=== PATIENT | female | born 1945 | race Caucasian/White ===

== ENCOUNTER → 2017-10-24 14:57 | Outpatient (CLI) | payer MEDICARE, OTHER, SELFPAY ==
--- NOTE | 2017-10-24 15:04 | XR_ITS ---
XR DEXA axial skeleton HISTORY: ITS.REASON: OSTEOPAROSIS ORDERING PHYSICIAN: Tyrese Alcazar MD PATIENT AGE: 72 years COMPARISON: 06/06/2012 FINDINGS: The BMD measured at the Right femoral neck is 0.940 g/cm squared with a T score of -0.7 . This is considered normal according to the World Health Organization criteria. Fracture risk is low. Treatment is advised. Lumbar spine density has increased by 1.6% in the hip density has decreased by 4% compared to the previous exam. L1 L4 density has a T score of 1.4 which is within normal limits IMPRESSION: Normal bone density. Suggest follow-up exam October 2019
--- NOTE | 2017-10-24 15:04 | CT_ITS ---
EXAM: CT LUNG LOW DOSE WO CONTRAST COMPARISON: None HISTORY: 72-year-old female with greater than 30 pack-year smoking history, asymptomatic ORDERING PHYSICIAN: Tyrese Alcazar MD PATIENT AGE: 72 years TECHNIQUE: The exam was performed on a GE Light Speed [address] scanner using 18.1 mGy CTDI. A low dose helical CT CHEST was performed on a multi-detector scanner The LDCT was performed in a facility that meets the criteria for the screening program. Data regarding this exam was submitted to ACR which is an approved registry. The order for this exam indicates that it came as a result of a lung cancer screening counseling shard decision-making visit that included all the elements required of such a visit including smoking cessation. The radiologist interpreting this exam meets the [facility] criteria for the LDCT lung cancer screening program. The exam is reported using the Lung-RADS classification scale and reported to the ACR registry. NOTE: This study was performed for the specific purposes of lung cancer screening and is not an alternative to diagnostic chest CT. RADIATION DOSE: CTDI vol(CT dose Index-volume) = 18.1mG DLP (Dose Length Product) = 664.76 mGcm FINDINGS: Centrilobular emphysematous changes are present. There is hyperinflation with bronchial thickening consistent with obstructive chronic bronchitis. There is evidence of old granulomatous disease with scattered calcified granulomas. There are multiple noncalcified pulmonary nodules as well including a 5 mm nodule in the right upper lobe centrally, 7 x 6 mm nodule along the right major fissure inferiorly. This nodule is somewhat more irregular than expected for a lymph node therefore, follow-up is recommended., 5 mm nodule right upper lobe inferiorly, 5 mm nodule left lung base laterally. Bronchial thickening noted in the left lung base with patchy atelectasis or infiltrate in the left lower lobe and lingula. There are coronary artery calcifications. An 8 x 5 cm isodense lesion is present in the left upper quadrant posterior to the left kidney measuring near water density consistent with renal cyst There is chronic wedging of T6. IMPRESSION: 1. Lung RADS Category: 3, probably benign 2. Other findings: Emphysema, obstructive chronic bronchitis. Bronchiolitis with atelectasis or infiltrate in the left lower lobe and lingula, coronary artery disease RECOMMENDATIONS: [address] follow-up without and with contrast
== END ==
PROVIDERS: Family Provider Family Medicine; PCP Family Medicine; Visit Provider Family Medicine
DX: Z87.891 Personal history of nicotine dependence (principal); Z12.2 Encounter for screening for malignant neoplasm of respiratory organs; M81.0 Age-related osteoporosis without current pathological fracture
CPT/HCPCS: 77080

== ENCOUNTER → 2017-10-26 08:49 | Outpatient (CLI) | payer MEDICARE, OTHER, SELFPAY ==
--- NOTE | 2017-10-26 09:00 | MM_ITS ---
MM Dig screening mamm BI w/CAD CAD Screening ORDERING PHYSICIAN : Tyrese Alcazar MD PATIENT AGE: 72 years GENDER: Female COMPARISON: Previous mammograms: June 2012, November 2008 and 2007 INDICATION: Routine screening. No hormones. No complaints Family history. Maternal aunt with breast cancer postmenopausal TECHNIQUE: Standard CC and MLO images were obtained. R2 CAD reviewed. FINDINGS: Stable bilateral mammogram with no significant new findings. Lower density breast but there is Mild to moderate residual scattered fibroglandular breast tissue in density most evident towards superior breast. Stable minor asymmetry. RIGHT BREAST: Stable small intramammary lymph node deep right breast on MLO view unchanged since 2008 On detailed review I would note barely evident subtle grouping of small more likely benign-appearing mainly punctate calcifications seen at deep lateral right breast on cc view. On magnification & closer inspection there appear to be tiny calcifications here... On MLO these likely at central breast.. Would suggest CC and 90 degree magnification views at the patient's convenience to further evaluate these most likely benign early calcifications highlighted by CAD..-At patient's convenience. (A Reasonable alternative would be a 6 month follow-up right mammogram in preferred by patient). I Reviewed this study twice previously and again today with and similar recommendations stand recommendation Minimal nodularity this medial to this region was highlighted by CAD but I believe seems to dissipate on MLO view and not of significant concern OB included on the CC spot views as well LEFT BREAST:No new areas of concern on the left.. Follow-up in one year adequate ===== IMPRESSION: ====== 1. Right breast A very small cluster of most likely benign punctate calcifications lateral central right breast . These are subtle but given the numerous tiny associated calcifications here, I believe benefit magnification spot views. ( Reasonable alternative if preferred would be 6-8 month follow-up right breast) . 2. Left breast. Follow-up in one year adequate on left BI-RADS Category: 0 Need Additional Imaging Evaluaiton. RECOMMENDED FOLLOW-UP: IMM - IMMEDIATE FOLLOW-UP RECOMMENDED (A letter has been sent to the patient regarding results of the study.) A
== END ==
PROVIDERS: Family Provider Family Medicine; PCP Family Medicine; Visit Provider Family Medicine
DX: Z12.31 Encounter for screening mammogram for malignant neoplasm of breast (principal); N60.11 Diffuse cystic mastopathy of right breast; N60.12 Diffuse cystic mastopathy of left breast
CPT/HCPCS: 77067

== ENCOUNTER → 2017-10-30 14:44 | Outpatient (CLI) | payer MEDICARE, OTHER, SELFPAY | PROVIDERS: PCP Family Medicine; Visit Provider Surgery | DX: Z01.810 Encounter for preprocedural cardiovascular examination (principal) | CPT/HCPCS: 93005 ==

== ENCOUNTER → 2017-11-14 12:39 | Outpatient (CLI) | payer MEDICARE, OTHER, SELFPAY ==
--- NOTE | 2017-11-14 12:48 | MM_ITS ---
MM Dig mamm DX unilat RT CAD COMPARISON: 10/26/2017 INDICATION: Follow-up abnormal mammogram ORDERING PHYSICIAN: Tyrese Alcazar MD PATIENT AGE: 72 years TECHNIQUE: Magnification views obtained as well as a right ML view FINDINGS: Previously described small cluster of calcifications are once again noted. The calcifications have a somewhat smudgy appearance however they do not linoleum tile layer as milk of calcium and have some pleomorphism and are similar in appearance on all 3 magnification views. There are mildly suspicious and biopsy is recommended. IMPRESSION: Mildly suspicious cluster of calcifications in the upper outer right breast having some pleomorphism. BI-RADS Category: 4 Suspicious Abnormality-Biopsy Considered RECOMMENDED FOLLOW-UP: BIO - BIOPSY RECOMMENDED Recommend stereotactic breast biopsy (A letter has been sent to the patient regarding results of the study.)
== END ==
PROVIDERS: Family Provider Family Medicine; PCP Family Medicine; Visit Provider Family Medicine
DX: R92.8 Other abnormal and inconclusive findings on diagnostic imaging of breast (principal)
CPT/HCPCS: 77065

== ENCOUNTER → 2017-12-05 09:00 | Outpatient (CLI) | payer MEDICARE, OTHER, SELFPAY ==
--- NOTE | 2017-12-05 | MM_ITS ---
MM stereotactic loc RT, MM Dig mamm DX unilat RT CAD ORDERING PHYSICIAN: Tyrese Alcazar MD PATIENT AGE: 72 years HISTORY: Breast calcifications 9:00 right breast PROCEDURE: The patient was given 0.5 mg of Xanax, Lortab 5 mg, and analgesia and minor sedation. The patient was placed on the stereotactic table and the abnormality was localized in the most appropriate projection. The breast was prepped in the routine manner, with sterile prep and the overlying skin anesthetized. A 3 to 4 mm skin incision was performed and the 9 gauge sorus vacuum-assisted core biopsy needle was advanced to the region of the calcification. Pre- and post fire images were obtained. After adequate positioning relative to the calcifications was ensured, multiple biopsies were obtained in the region of the calcifications specifically. The core biopsies obtained were sent for specimen mammography. After the calcifications were indeed identified on the specimen mammogram, the procedure was terminated. The patient tolerated the procedure well without complications. Specimen was sent for pathologic analysis which should be forthcoming within 3 working days. Routine follow-up phone call to patient is to be performed as well. A tiny titanium nonferromagnetic MicroMark was positioned through the mammotome needle into the biopsy site. Pathology: Benign breast parenchyma with fibrocystic change with rare microcalcifications. Negative for atypia or malignancy IMPRESSION: 1. Successful stereotactic vacuum-assisted core biopsy of the Right breast calcifications. 2. Successful placement of a titanium metal MicroMark. 3. No immediate competitions. SPECIMEN RADIOGRAPH: The mammographically evident calcifications from the prior study are currently evident within the Ragini dish and within the specimens obtained during mammotome procedure. This is considered an adequate specimen and the procedure was terminated. IMPRESSION: Successful removal of described breast calcifications. Right BREAST MAMMOGRAM: Compared to the prior study, the previously noted calcification have been removed. A small MicroMark clip was inserted into the region of the calcifications. There is evidence of soft tissue changes in the region of the biopsy was soft tissue gas and edema. IMPRESSION: 1. Adequate placement of the MicroMark clip postbiopsy. 2. Postbiopsy changes within the rightbreast.
== END ==
PROVIDERS: Family Provider Family Medicine; PCP Family Medicine; Visit Provider Family Medicine
DX: R92.8 Other abnormal and inconclusive findings on diagnostic imaging of breast (principal)
CPT/HCPCS: 19081; 77065; 88305

== ENCOUNTER → 2018-04-23 11:35 | Outpatient (CLI) | payer MEDICARE, OTHER, SELFPAY ==
[2018-04-23 14:57] LABS: Blood Urea Nitrogen 20 mg/dL (7-18); Creatinine,Serum 0.76 mg/dL (0.55-1.02); Estimated Glomerular Filt Rate 75 ml/min (>60); GFR (African American) 90 ML/MIN (>60)
== END ==
PROVIDERS: PCP Family Medicine; Visit Provider Family Medicine
DX: Z01.818 Encounter for other preprocedural examination (principal)
CPT/HCPCS: 36415; 82565; 84520

== ENCOUNTER → 2018-04-29 12:42 | Outpatient (CLI) | payer MEDICARE, OTHER, SELFPAY ==
--- NOTE | 2018-04-29 12:46 | CT_ITS ---
CT chest wo/w con HISTORY: Follow-up pulmonary nodules, cough ITS.REASON: LUNG NODULE ORDERING PHYSICIAN: Tyrese Alcazar MD PATIENT AGE: 73 years COMPARISON: 10/24/2017 Technique: Axial images obtained without and with contrast. 75 mL Isovue-370 utilized. With sagittal and coronal reformats. All CT scans at the facility use one or more dose reduction, viz: automated exposure control, ma/kV adjustment per patient size (including targeted exams where dose is matched to indication, i.e. head), or iterative reconstruction technique. FINDINGS: There are scattered small lymph nodes in the mediastinum not significantly changed. No evidence of aortic aneurysm or dissection. No central pulmonary embolus. No mediastinal or hilar mass or adenopathy. Normal heart size without evidence of pericardial effusion. There are coronary artery calcifications. There are centrilobular emphysematous changes. No change 4 mm nodular opacity right upper lobe centrally. No change in the 6 mm fissural nodule along the major fissure on the right in the perihilar region. There are scattered calcified granulomas. Atelectatic changes are present in the lung bases. A 5 mm noncalcified nodules present in the left lower lobe posteriorly and laterally unchanged. No new nodules evident. No central obstructing lesions. No enhancing lesions There is wedge compression changes of T6 unchanged. 8 x 6 cm left renal cyst noted unchanged. IMPRESSION: 1. Overall stable CT appearance of the chest. No change in the above-mentioned pulmonary nodules. Suggest continued 12 month follow-up 2. Centrilobular is edema. 3. Old granulomatous disease
== END ==
PROVIDERS: Family Provider Family Medicine; PCP Family Medicine; Visit Provider Family Medicine
DX: R91.1 Solitary pulmonary nodule (principal)
CPT/HCPCS: 71270; Q9967

== ENCOUNTER 2018-05-22 16:30 | Outpatient (RCR) | payer MEDICARE, OTHER, SELFPAY ==
--- NOTE | 2018-05-14 17:43 | HMH.PTOPEV ---
PT Outpatient Evaluation Rehab PT Outpatient Evaluation Start: 05/14/18 17:25 Freq: Status: Active Protocol: Document 05/14/18 17:25 TOYA (Rec: 05/14/18 17:43 TOYA [id number]) Electronically Signed By Lyle Sylvester, PT 05/14/18 17:25 Outpatient Therapy Subjective History Subjective History Pt reports pain began insidiously ~ 1 month ago. Pt reports pain begins in her lateral R ankle/foot, moves up into lateral calf, posterior thigh, then into buttocks. Pt reports pain only begins upon lying down. Chief Complaint Pain Symptom Type Ache Throb Symptoms Relieved By Rest/Positioning Symptoms Aggravated By Prone Supine Prior Functional Limitations None Current Functional Limitations Sleeping Symptom Description Intermittent Level of pain today (0-10) 0 Pain scale - at its best (0-10) 0 Pain scale - at its worst (0-10) 7 Lumbopelvic Eval Assistive device Assistive Devices None / NA Gait Observation General Gait Pattern Observation No Deviations/Normal Palapation tenderness right lumbar spinal tenderness Yes buttock tenderness Yes Lumbar/Sacral Palpation Overall Comment TTP at R piriformis Accessory Movement L4 right L5 right Range of Motion Lumbar Spine ROM Reason Not Measured Within Functional Limits DTR Rt Patellar 1+ Lt Patellar 1+ Rt Gastroc/Soleus 0 Lt Gastroc/Soleus 0 Altered Sensation Bilateral Comment no altered sensation Special Tests Lumbar Spine Screen Negative Sciatic Nerve Tension Test Negative Right Reverse Sciatic Nerve Tension Test Negative Right Hip 90-90 Straight Leg Raise Test Negative Right Unilateral Straight Leg Raise (Lasegue) Negative Right Test Lumbar Long [place] Distraction Test/Manual Positive Traction Outpatient Therapy Assessment Impairments Problems/Impairmments Palpation Tenderness Subjective C/O Pain Impaired Self Care/Self Management Prognosis Rehab Potential Fair Clinical Impression Consistent with Diagnosis Yes Short Term Goals Number of Weeks 2 Decreased Palpation Tenderness Yes: min Decrease Subjective C/O Pain Yes: 01/13 Patient to be Ind w/ HEP Yes [employer]
== END 2018-05-22 16:31 | disposition home or self-care (01) ==
LOC: PT 16:30
PROVIDERS: Family Provider Family Medicine; PCP Family Medicine; Visit Provider Family Medicine
DX: M54.31 Sciatica, right side (principal)
CPT/HCPCS: 97110; 97163

== ENCOUNTER → 2018-06-05 14:03 | Outpatient (CLI) | payer MEDICARE, OTHER, SELFPAY ==
--- NOTE | 2018-06-05 14:07 | CI_ITS ---
Cerebrovascular Exam Indications: 433.10 Occlusion/stenosis of carotid artery without cerebral infarction. IMPRESSIONS 1. The bilateral vertebral arteries are patent with normal antegrade flow. 2. Study suggests less than 20% stenosis involving the right internal carotid artery. No change from the study of 29-Dec-2011. 3. Study suggests less than 20% stenosis involving the left internal carotid artery. No change from the study of 29-Dec-2011. Carotid duplex study. Complete study and Doppler flow study including spectral analysis, color and mora scale imaging. Height: Height: 170.2cm. Height: 67in. Weight: Weight: 104.3kg. Weight: 229.5lb. Body mass index: BMI: 36kg/m^2. Body surface area: BSA: 2.26m^2. Location: Vascular laboratory. Patient status: Outpatient. Tables: Arterial flow: + +--------+--------+ Location V sys V ed + +--------+--------+ Right CCA - proximal 68.4cm/s 20.4cm/s + +--------+--------+ Right CCA - distal 67.6cm/s 21.2cm/s + +--------+--------+ Right ECA 119cm/s 9.4cm/s + +--------+--------+ Right ICA - proximal 77.8cm/s 22cm/s + +--------+--------+ Right ICA - mid 123cm/s 35.4cm/s + +--------+--------+ Right ICA - distal 131cm/s 45.6cm/s + +--------+--------+ Right vertebral 51.9cm/s 9.4cm/s + +--------+--------+ Left CCA - proximal 66.8cm/s 18.9cm/s + +--------+--------+ Left CCA - distal 58.1cm/s 14.1cm/s + +--------+--------+ Left ECA 92.7cm/s 11.8cm/s + +--------+--------+ Left ICA - proximal 68.4cm/s 19.6cm/s + +--------+--------+ Left ICA - mid 54.2cm/s 16.5cm/s + +--------+--------+ Left ICA - distal 62.1cm/s 22cm/s + +--------+--------+ Left vertebral 38.5cm/s 10.2cm/s + +--------+--------+ Velocity ratios: + + + + + + Right, V sys Right, V ed Left, V sys Left, V ed + + + + + + Max ICA/dist CCA 1.94 2.15 1.18 1.56 + + + + + + (Report amended ) Electronically signed by: Uriel Marin [id number]
== END ==
PROVIDERS: PCP Family Medicine; Visit Provider Family Medicine
DX: I65.23 Occlusion and stenosis of bilateral carotid arteries (principal)
CPT/HCPCS: 93880

== ENCOUNTER → 2019-10-03 13:06 | Outpatient (CLI) | payer MEDICARE, OTHER, SELFPAY ==
--- NOTE | 2019-10-03 13:10 | US_ITS ---
PROCEDURE: US THYROID CLINICAL INDICATION: GOITER COMPARISON: THY US THYROID from 03/26/[address] chest wo/w con from 04/29/2018 FINDINGS: Right lobe: 4.1 x 1.4 x 1.9 cm. There is heterogeneous echogenicity. A 4 mm hypoechoic nodules present centrally with an additional 4 mm hypoechoic nodule centrally. There is some questionable calcification noted in the medial aspect of the right lobe of the thyroid gland inferiorly Left lobe: 4.1 x 1.3 x 1.1 cm. There is some decreased echogenicity centrally. This area measures approximately 7 mm and could represent a small ill-defined nodule. The lower poles are difficult to delineate on both lobes due to the low position. Isthmus: Unremarkable Additional findings: IMPRESSION: Heterogeneous thyroid echogenicity with bilateral nodules low level of suspicion for malignancy. There is questionable calcification in the right lobe. Recommend six-month follow-up to confirm stability Dictated by: Uriel Marin MD 10/03/2019 16:50 Electronically signed by Uriel Marin MD in [place] 10/03/2019 16:50
== END ==
PROVIDERS: PCP Family Medicine; Visit Provider Family Medicine
DX: E04.9 Nontoxic goiter, unspecified (principal)
CPT/HCPCS: 76536

== ENCOUNTER → 2019-10-16 12:20 | Outpatient (CLI) | payer MEDICARE, OTHER, SELFPAY ==
[2019-10-16 13:41] LABS: Free T4 (Free Thyroxine) 0.97 ng/dl (0.78-2.19)
== END ==
PROVIDERS: Visit Provider Physician Assistant
DX: E03.9 Hypothyroidism, unspecified (principal)
CPT/HCPCS: 84439

== ENCOUNTER → 2020-05-03 09:21 | Outpatient (CLI) | payer MEDICARE, OTHER, SELFPAY ==
--- NOTE | 2020-05-03 09:25 | MM_ITS ---
PROCEDURE: MM DIG SCREENING MAMM BI W/CAD Referring Doctor: Tyrese Alcazar Patient Age:75Y CLINICAL INDICATION: SCREENING no hormones no new complaints Stereotactic right Fam Hx : Mat aunt COMPARISON: MG DIGMAMMS MAMMOGRAM SCREEN-COMPRESSOR MECHANIC N/C from 11/21/2007 MG DIGMAMMS MAMMOGRAM SCREEN-COMPRESSOR MECHANIC N/C from 11/24/2008 MG DMSB DIGITAL MAMM-SCREEN BILATERAL from 06/06/2012 MG SCBI MM Dig screening mamm BI w/CAD from 10/26/2017 MG DXRT MM Dig mamm DX unilat RT CAD from 11/14/2017 MG STRT MM stereotactic loc RT from 12/05/2017 TECHNIQUE: Standard CC and MLO images were obtained. R2 CAD reviewed. Bilateral digital breast tomosynthesis included. FINDINGS: Moderate density breast. Mild asymmetry. No new suspicious calcifications. Left breast:. Small 6 mm X 7 mm small ovoid density at 12 o'clock left breast has developed since prior studies. Suspect likely small cyst or similar feature. But would recommend ultrasound to further evaluate along with spot cc and 90 degree view and CC view. Right breast. No new areas of concern on the right . There has been a previous percutaneous biopsy at right breast performed December 2017. Metallic clip marker deep lateral right breast. Otherwise the overall pattern the breast appears unchanged compared to to 2016 on today's study. And the IMPRESSION: Left breast. New small round density towards 12 o'clock -suspect likely small cyst. Recommend ultrasound and spot views to further evaluate Right breast: No new areas of concern follow-up right mammogram 1 year BI-RAD Category: 0 Need Additional Imaging Evaluation a headache FOLLOW-UP: IMM Immediate Follow-up Recommended (A letter has been sent to the patient regarding results of the study.) Dictated by: Germán Calhoun MD 05/10/2020 11:41 Germán Calhoun MD in [place] 05/10/2020 11:41
--- NOTE | 2020-05-03 09:25 | XR_ITS ---
PROCEDURE: XR DEXA AXIAL SKELETON CLINICAL HISTORY: OSTEOPENIA COMPARISON: CR DEXAAX XR DEXA axial skeleton from 10/24/2017 FINDINGS: The right hip BMD is 0.774 with a T-score of -0.7. The left hip BMD is 0.813 with a T-score of -0.3. The lumbar spine BMD is 1.220 with a T-score of 1.6. Previously the lowest density was in the right femoral neck with a T-score of -0.7 IMPRESSION: This patient is considered normal according to the World Health Organization criteria. Fracture risk is low. Based on these results a follow-up exam is recommended in 2 year. Dictated by: Uriel Marin MD 05/04/2020 08:23 Uriel Marin MD in [place] 05/04/2020 08:23
== END ==
PROVIDERS: PCP Family Medicine; Visit Provider Family Medicine
DX: Z12.31 Encounter for screening mammogram for malignant neoplasm of breast (principal); M85.89 Other specified disorders of bone density and structure, multiple sites
CPT/HCPCS: 77063; 77067; 77080

== ENCOUNTER → 2020-05-26 14:32 | Outpatient (CLI) | payer MEDICARE, OTHER, SELFPAY ==
--- NOTE | 2020-05-26 14:34 | MM_ITS ---
PROCEDURE: MM DIG MAMM DX UNILAT LT CAD Digital Breast Tomosynthesis Included CLINICAL INDICATION: ABN MAMM COMPARISON: MG DXRT MM Dig mamm DX unilat RT CAD from 11/14/2017 MG STRT MM stereotactic loc RT from 12/05/2017 MG MM DIG SCREENING MAMM BI W/CAD from 05/03/2020 US US BREAST LT COMPLETE from 05/26/2020 TECHNIQUE: Standard CC and MLO images and 3D Tomosynthesis was obtained. R2 CAD reviewed. FINDINGS: Spot-compression views show that the previously described nodular density does not press out. It shows well-defined borders and in fact on some of the spot views it appears at there are 2 small nodular densities adjacent to 1 another and partially overlapping. Ultrasound performed same date showed a somewhat complex appearing cyst with partial internal septation versus 2 cystic structures with partial septation. It shows no suspicious characteristics on ultrasound or on the spot views. IMPRESSION: Probable complex cyst versus 2 small cysts with partial internal septation BI-RAD Category: 2 Benign Finding(s) FOLLOW-UP: 1YR 1 Year Follow-up (A letter has been sent to the patient regarding results of the study.) Dictated by: Dr. James Ribera MD 06/02/2020 08:06 Dr. James Ribera MD in [place] 06/02/2020 08:06
--- NOTE | 2020-05-26 14:34 | US_ITS ---
PROCEDURE: US BREAST LT COMPLETE CLINICAL INDICATION: ABN MAMM COMPARISON: No exams were available for comparison FINDINGS: There is a small hypoechoic cystic-appearing structure the 12 o'clock position near the nipple measuring 0.7 by 0.9 x 0.4 cm. This cystic structure is either a complex cyst with partial internal septation versus 2 small cyst abutting one another. There are no suspicious characteristics. The surrounding breast parenchyma is unremarkable. There are 2 normal appearing nodes seen in the axilla. IMPRESSION: Complex cyst versus versus 2 cysts abutting one another and I believe no further evaluation is indicated. Dictated by: Dr. James Ribera MD 06/02/2020 08:08 Dr. James Ribera MD in [place] 06/02/2020 08:08
== END ==
PROVIDERS: PCP Family Medicine; Visit Provider Nurse Practitioner
DX: R92.8 Other abnormal and inconclusive findings on diagnostic imaging of breast (principal)
CPT/HCPCS: 76641; 77061; 77065; G0279

== ENCOUNTER → 2021-09-30 12:00 | Outpatient (CLI) | payer MEDICARE, OTHER, SELFPAY ==
[2021-09-30 12:44] LABS: Basophils % 0.3 % (0.1-2.0); Eosinophils % 0.2 % (0.1-12.0); Hematocrit 38.9 % (37.0-47.0); Hemoglobin 12.9 g/dL (12.2-16.2); Lymphocytes # 1.4 K/mm3 (0.7-4.5); Mean Corpuscular HGB Conc 33.2 g/dL (31.8-35.4); Mean Corpuscular Hemoglobin 31.6 pg (27.0-31.2); Mean Corpuscular Volume 95.4 fl (81-99); Mean Platelet Volume 8.8 fl (7.4-10.4); Monocytes # 0.6 K/mm3 (0.1-1.0); Monocytes % 6.6 % (1.7-9.3); Neutrophils # 6.6 K/mm3 (1.8-7.8); Neutrophils % 76.9 % (37.0-80.0); Platelet Count 157 K/mm3 (142-424); Red Blood Count 4.08 M/mm3 (4.20-5.40); Red Cell Distribution Width 14.1 % (11.5-17.5); White Blood Count 8.5 K/mm3 (4.8-10.8)
--- NOTE | 2021-09-30 12:53 | XR_ITS ---
FINAL REPORT CLINICAL HISTORY: COVID TESTING cough, smoker COMPARISON: August 21, 2016 FINDINGS: The heart size is normal. The mediastinum is normal. There is chronic scarring or fibrosis in the lung bases that is more evident than on the prior exam. There are no pleural effusions. There is no pneumothorax. There is no osseous abnormality. IMPRESSION: Chronic scarring or fibrosis in the lung bases. Reviewed, Interpreted and Dictated by Ilia Lopez MD Transcribed by Cornel Wells Authenticated by Ilia Lopez MD on 09/30/2021 01:34:51 PM [facility]
== END ==
PROVIDERS: PCP Family Medicine; Visit Provider Family Medicine
DX: U07.1 COVID-19 (principal)
CPT/HCPCS: 36415; 71045; 85025; 87275; 87276; C9803; U0003; U0005

== ENCOUNTER → 2022-07-14 07:30 | Outpatient (CLI) | payer MEDICARE, OTHER, SELFPAY ==
--- NOTE | 2022-07-14 07:38 | MR_ITS ---
FINAL REPORT CLINICAL HISTORY: SYNOVIAL CYST OF LEFT POPLITEAL SPACE. PAIN IN BEND OF KNEE. MEDIAL SIDED KNEE PAIN. NO INJURY OR TRAUMA. KNEE INSTABILITY. FINDINGS: Multiplanar MR imaging of the right knee was performed without contrast. There is medial meniscal degeneration with a tear of the posterior root. The lateral meniscus is intact. The anterior and posterior cruciate ligaments are intact. The medial collateral ligament and lateral ligamentous complex are intact. The patellar and quadriceps tendons are intact. There are foci of patellar tendinitis. There is a nondisplaced fracture of the medial tibial plateau with adjacent bone marrow edema. There is mild degenerative change with moderate to severe medial compartment chondromalacia. There is also severe patellofemoral chondromalacia with multiple subchondral cysts. Moderate joint effusion is seen. The musculature is intact. No soft tissue mass or cyst is identified. IMPRESSION: Tear posterior root medial meniscus. Nondisplaced fracture of the medial tibial plateau. Degenerative change and chondromalacia. Reviewed, Interpreted and Dictated by Jose Machuca III, MD Transcribed by Misty Trinh Authenticated and [facility]
== END ==
PROVIDERS: PCP Family Medicine; Visit Provider Family Medicine
DX: M71.22 Synovial cyst of popliteal space [Baker], left knee (principal)
CPT/HCPCS: 73721

== ENCOUNTER → 2022-08-03 09:01 | Outpatient (CLI) | payer MEDICARE, OTHER, SELFPAY ==
--- NOTE | 2022-08-03 09:12 | XR_ITS ---
FINAL REPORT CLINICAL HISTORY: knee pain COMPARISON: July 14, 2022 MRI FINDINGS: 3 views of the left knee were obtained. There is no acute fracture or dislocation. There are mild degenerative changes. There is calcification in the lateral meniscus. There is a moderate joint effusion. IMPRESSION: Mild degenerative change with moderate joint effusion. Reviewed, Interpreted and Dictated by Jose Machuca III, MD Transcribed by Cornel Wells Authenticated and [facility]
== END ==
PROVIDERS: PCP Psychiatry & Neurology Sleep Medicine; Visit Provider Orthopaedic Surgery
DX: M25.562 Pain in left knee (principal)
CPT/HCPCS: 73562

== ENCOUNTER → 2022-11-17 12:31 | Outpatient (CLI) | payer MEDICARE, OTHER, SELFPAY ==
--- NOTE | 2022-11-17 12:38 | CT_ITS ---
FINAL REPORT TECHNIQUE: Axial images through the chest was performed with and without contrast by computed tomography. Sagittal and coronal reformatted images were obtained and reviewed. This study was performed with techniques to keep radiation doses as low as reasonably achievable (ALARA). Individualized dose reduction techniques using automated exposure control or adjustment of mA and/or kV according to the patient's size were employed. CLINICAL HISTORY: TOBACCO ABUSE,PULMONARY NODULES, SOB, ASTHMA, COUGH, CONGESTION COMPARISON: 04/29/2018 FINDINGS: There are small mediastinal nodes. There is no axillary mass or adenopathy. The heart is normal in size. There is no pleural or pericardial effusion. There is mild emphysema and mild scarring. Multiple calcified granulomas are seen. There is bibasilar atelectasis. No new mass or nodule is identified. Limited images of the upper abdomen reveal a 14 mm left adrenal nodule, previously measured 13 mm. This is favored to represent an adenoma. The patient is status post cholecystectomy. Left renal cysts are identified. IMPRESSION: Bibasilar atelectasis. No suspicious pulmonary mass or nodule. Left adrenal nodule, favor an adenoma. Reviewed, Interpreted and Dictated by Jose Machuca III, MD Transcribed by Misty Trinh Authenticated and [facility]
== END ==
PROVIDERS: PCP Family Medicine; Visit Provider Family Medicine
DX: R91.8 Other nonspecific abnormal finding of lung field (principal); Z72.0 Tobacco use
CPT/HCPCS: 71270; Q9967

== ENCOUNTER → 2022-11-22 09:54 | Outpatient (CLI) | payer MEDICARE, OTHER, SELFPAY | PROVIDERS: PCP Family Medicine; Visit Provider Nurse Practitioner Family | DX: E78.5 Hyperlipidemia, unspecified (principal); F17.200 Nicotine dependence, unspecified, uncomplicated; G47.33 Obstructive sleep apnea (adult) (pediatric); I10 Essential (primary) hypertension; R00.2 Palpitations; R06.09 Other forms of dyspnea; R94.31 Abnormal electrocardiogram [ECG] [EKG] | CPT/HCPCS: 93270 ==

== ENCOUNTER → 2022-12-19 06:04 | Outpatient (CLI) | payer MEDICARE, OTHER, SELFPAY ==
--- NOTE | 2022-12-19 06:05 | NM_ITS ---
APPROVED REPORT Exam: Nuclear Stress Test Indication: HTN, HYPERLIPIDEMIA, TOB USE, FM HX, SOB, FATIGUE Patient Location: Outpatient Stress Tech: Saba Steen [place] Tech:NI [place] RT (R)(N)(M) Ht: 5 ft 7 in Wt: 230 lbs Bra Size: DD HR: 58 bpm BP: 143/66 mmHg BSA: 2.15 m2 TID: 0.96 BMI: 36.0 History: HTN, HYPERLIPIDEMIA, TOB USE, FM HX, SOB, FATIGUE Procedure: Patient received 0.4 mg of intravenous Lexiscan, resting heart rate 58 bpm, resting blood pressure 143/66 mmHg, with Lexiscan maximum heart rate achieved was 71 bpm which is % of the maximum predicted heart rate and blood pressure was 147/62 mmHg. With Lexiscan, patient denied any complaint of chest pain. Cardiac Stress and Resting SPECT Images: Cardiac Stress and Resting SPECT images were obtained using technetium 99m Myoview 31.7 mCi stress and 10.24 mCi at rest. Resting and stress images demosntrate a mild, medium-sized anterior fixed perfusion defect. This defect is no longer visualized when the images were obtained in prone position. Gated images demonstrate a normal left ventricular global and regional systolic function. LV ejection fraction is calculcated at 66%. Conclusion: Resting and stress images demosntrate a mild, medium-sized anterior fixed perfusion defect. This defect is no longer visualized when the images were obtained in prone position. These findings are most consistent with breast attenuation. No evidence of ischemia. Gated images demonstrate a normal left ventricular global and regional systolic function. LV ejection fraction is calculcated at 66%. Electronically signed by : Oneyda Gonzalez, 12/19/2022 17:53:08
--- NOTE | 2022-12-19 08:37 | CA_ITS ---
APPROVED REPORT Exam: Pharmacologic Technologist: Saba Jimenes, Ht: 5 ft 7 in Wt: 238 lbs BSA: 2.18 m2 HR: 58 bpm BP: 143/66 mmHg Rhythm: Sinus bradycardia Medical History Medications: Levothyroxine,,,,, Aspirin,,,,, Coenzyme,,,,, Vitamin E,,,,, Losartan,,,,, Allopurinol,,,,, Zocor,,,,, CloPIdogrel,,,,, Vitamin B,,,,, Celecoxib,,,,, Levocetirizine,,,,, NaSonex,,,,, Stress Test Details Test: LEXISCAN Reason for pharmacologic stress test: physical limitation. HR Resting HR: 49 bpm Max Heart Rate (APMHR): 143 bpm Max HR Achieved: 73 bpm Target HR (85% APMHR): 122 bpm % of APMHR: 51 Recovery HR: 61 bpm BP Resting BP: 143.0/66.0 mmHg Max BP: 147.0/62.0 mmHg Recovery BP: 122.0/63.0 mmHg ECG Resting ECG: sinus melisa, RBBB, low voltage QRS, cannot R/O old inferior MO on resting ECG Clinical Exercise duration: 04:00 min Highest Stage Achieved: Exercise capacity: n/a METs Stress ECG Conclusion Symptoms: SOA, stomach discomfort. No CP. Arrhythmias/Ectopy: Occasional PVC. ST-T Changes: No significant changes. Conclusion: Unremarkable Lexiscan stress. Myoview images reported separately. Test Summary REST . . . . . . . Resting REST 10:24 . . 49 . 143/ 66 . . Stage 1 01:00 . . 66 . . . . Stage 2 01:00 . . 70 . 147/ 62 . . Stage 3 01:00 . . 65 . 135/ 65 . . Stage 4 01:00 . . 65 . 136/ 66 . Stop exercise at 04:00 RECOVERY 01:00 . . 64 . . . . RECOVERY 02:00 . . 62 . 142/ 65 . . RECOVERY 03:00 . . 62 . 122/ 63 . . RECOVERY 03:43 . . 63 . 122/ 63 . . Electronically signed by : Oneyda Gonzalez, 12/19/2022 17:39:41
== END ==
PROVIDERS: PCP Family Medicine; Referring Provider Nurse Practitioner Family; Visit Provider Nurse Practitioner Family
DX: E78.5 Hyperlipidemia, unspecified (principal); F17.200 Nicotine dependence, unspecified, uncomplicated; G47.33 Obstructive sleep apnea (adult) (pediatric); I10 Essential (primary) hypertension; R06.09 Other forms of dyspnea; R94.31 Abnormal electrocardiogram [ECG] [EKG]
CPT/HCPCS: 78452; 93017; 93306; A9502; J2785

== ENCOUNTER 2023-01-02 09:21 | Day surgery (SDC) | payer MEDICARE, OTHER, SELFPAY ==
[2022-12-28 10:47] VITALS: BMI 36.8
[2023-01-02] VITALS (8 sets, daily range): BP systolic 101–161; BP diastolic 43–75; PULSE 57–67; RESP 16–18; TEMP 36.2; O2SAT 92–98
--- NOTE | 2023-01-02 09:31 | P.PN_ITS ---
[facility] Disclaimer: The information contained in this section may have been updated after the patient was seen, as this information can be updated by other users. Medical History Asthma Gout History of anemia History of cataract Hyperlipidemia Hypertension Hypothyroid Kidney stone Osteoarthritis Sleep apnea Urinary tract infection Surgical History H/O hernia repair History of appendectomy History of bunionectomy History of section History of cholecystectomy History of colonoscopy History of tonsillectomy Family History Other Alcoholism Cancer Diabetes Heart attack Hypertension Stroke Social History Smoking Status: Current every day smoker tobacco type: cigarettes alcohol intake: current counseling provided: provider counseling substance use type: denies use current occupational status: retired Travel in the last 8 weeks: None household members: spouse housing: house marital status: [facility] Anesthesia Checklist Patient Identification Patient Identification: Arm Band and Verbal (Name & ) Structural Data Admitted From: Home Planned Operative Procedure/s: Colonoscopy Consent for Planned Operative Procedure(s) Verified: Yes NPO Status Verified Time NPO: 00:00 Additional verifications Anesthesia Reactions: No Airway Assessment C-Spine Mobility Assessed: Yes TMJ Mobility Assessed: Yes Dentition: Dentures-poor fitting Neurological Assessment Level of Consciousness: Awake Hx Seizures: No Numbness or tingling in extremities: No Anesthesia Plan Anesthesia Risk discussed: Yes Anesthesia Plan: Verified ASA Class: III Anesthesia Type: MAC
--- NOTE | 2023-01-02 09:42 | P.PCN_ITS ---
Procedure: Date: 01/02/23 Patient Date of :: 1945 Procedure Performed:: Colonoscopy Indications:: History of colon polyps Note: Last colonoscopy in December 2017 was somewhat complicated by moderate bowel pr eparation, tortuosity, and spasticity/lack of relaxation. A periappendiceal adenoma was excised. Performing Provider:: Lavon Holder MD Referring Provider:: . Sedation:: Monitored anesthesia care Procedure:: After informed consent was obtained the patient was taken to the endoscopy suite. Sedation ensued after the patient was transferred to the left lateral decubitus position. Pulse, blood pressure, and oxygen saturation were monitored throughout the procedure. Digital rectal exam revealed no significant abnormality. The colonoscope was placed in position. The entire colon was evaluated. The colonoscope was carefully removed and the patient was transferred to recovery in stable condition. Please see findings and specimens below for detail. Findings:: Bowel preparation moderate to poor Profound sigmoid tortuosity Fairly severe spasticity/lack of relaxation Sigmoid diverticulosis Polyps (see specimens) Specimens:: Lobulated sessile right colon polyp (cold snare and cold biopsy forceps) Polyp at 15 cm (cold snare and cold biopsy forceps) Recommendations:: Timing of repeat colonoscopy is pending pathology will likely be around 2 years with alternate/extended bowel preparation. Consider gastroenterology consultation for possible chronic constipation (possibly defer next colonoscopy to the GI service). Complications:: No immediate Estimated blood obtained (mL): 1
== END 2023-01-02 12:43 | disposition home or self-care (01) ==
PROVIDERS: PCP Family Medicine; Visit Provider Surgery
PROC: 0DJD8ZZ Inspection of Lower Intestinal Tract, Via Natural or Artificial Opening Endoscopic (ICD-10-PCS; principal; 2023-01-02 10:30)
DX: Z12.11 Encounter for screening for malignant neoplasm of colon (principal); D12.5 Benign neoplasm of sigmoid colon; K57.30 Diverticulosis of large intestine without perforation or abscess without bleeding; F17.210 Nicotine dependence, cigarettes, uncomplicated; Z79.899 Other long term (current) drug therapy
CPT/HCPCS: 45380; 45385; 88305; J2704

== ENCOUNTER → 2023-01-04 12:20 | Outpatient (CLI) | payer MEDICARE, OTHER, SELFPAY | PROVIDERS: PCP Family Medicine; Visit Provider Specialist | DX: R06.02 Shortness of breath (principal); G47.33 Obstructive sleep apnea (adult) (pediatric) | CPT/HCPCS: 94762 ==

== ENCOUNTER 2024-05-30 09:02 | Outpatient (CLI) | payer MEDICARE, OTHER, SELFPAY ==
--- NOTE | 2024-05-30 09:09 | XR_ITS ---
FINAL REPORT CLINICAL HISTORY: SCREENING COMPARISON: 05/03/2020 FINDINGS: Using L1-4, the bone mineral density of the spine is 1.208 g/cm2, corresponding to T-score of 1.5, within normal limits. Previously was 1.220 g/cm? with a T-score of 1.6. Using the left hip, the bone mineral density of the total hip is 0.931 g/cm2, corresponding to a T-score of -0.1, within normal limits. Previously was 0.813 g/cm? with a T-score of -0.3. Using the right hip, the bone mineral density of the femoral neck is 0.758 g/cm2, corresponding to a T-score of -0.8, within normal limits. Previously was 0.774 g/cm? with a T-score of -0.7. FRAX not reported because all T-scores at or above -1.0. NOTE: T-score: Standard deviation compared with peak bone mass of young adult mean. *Following the recommendations of the International Society of Bone densitometry, classification of hip BMD is based on the lower of two T-scores; total hip or femoral neck. IMPRESSION: Normal bone mineral density of the lumbar spine and hips. Reviewed, Interpreted and Dictated by Jose Machuca III, MD Transcribed by Ching Prince Authenticated and [facility]
--- NOTE | 2024-05-30 09:09 | MM_ITS ---
PROCEDURE INFORMATION: Exam: MG Bilateral Screening 3D Mammography Exam date and time: 05/30/2024 9:10 AM Age: 79 years old Clinical indication: Screening examination TECHNIQUE: Imaging protocol: Bilateral Screening tomosynthesis and 2D mammography including computer-aided detection (CAD) when performed. COMPARISON: 1. MG MM DIG MAMM DX UNILAT LT CAD 05/26/2020 2:55 PM 2. MG MM DIG SCREENING MAMM BI W/CAD 05/03/2020 9:54 AM FINDINGS: MAMMOGRAPHY: Breast composition: There are scattered areas of fibroglandular density. Mass: No new or suspicious masses Architectural distortion: None. Calcifications: No suspicious calcifications. Asymmetric density: None. Skin thickening: None. Axillary adenopathy: None. IMPRESSION: No mammographic evidence of malignancy. Annual screening is recommended unless otherwise clinically indicated. ASSESSMENT: BI-RADS Category 1: Negative.
== END 2024-05-30 23:59 | disposition home or self-care (01) ==
LOC: RAD 09:03
PROVIDERS: PCP Family Medicine; Visit Provider Nurse Practitioner Family
DX: M81.0 Age-related osteoporosis without current pathological fracture (principal); Z12.31 Encounter for screening mammogram for malignant neoplasm of breast
CPT/HCPCS: 77063; 77067; 77080

== ENCOUNTER 2024-09-30 09:33 | Outpatient (CLI) | payer MEDICARE, OTHER, SELFPAY ==
--- NOTE | 2024-09-30 09:38 | CT_ITS ---
FINAL REPORT TECHNIQUE: Axial CT images of the chest were obtained without contrast. Low-dose protocol was utilized. This study was performed with techniques to keep radiation doses as low as reasonably achievable (ALARA). Individualized dose reduction techniques using automated exposure control or adjustment of mA and/or kV according to the patient's size were employed. CLINICAL HISTORY: SCREENING smoker 66 years 1 ppd COMPARISON: 11/17/2022 FINDINGS: CT CHEST WITHOUT, LOW DOSE SCREENING CT Di Vol: 2.90 mGy DLP: 88.30 mGy*cm There is no axillary, mediastinal, or hilar adenopathy. The heart size is normal. There is no pleural or pericardial effusion. The lung windows show no suspicious mass or nodule. Bibasilar scarring is noted. There is a stable 5 mm nodular density in the left lower lobe on image 51 probably related to scarring. Limited images of the upper abdomen demonstrate a left retroperitoneal mass similar to the prior CT scan and compatible with an exophytic renal cyst. IMPRESSION: Chronic lung changes without suspicious nodule. LR Category 2: 12 month follow-up low-dose chest CT is recommended per Fleischner criteria. Reviewed, Interpreted and Dictated by Tyrese Villarreal MD Transcribed by Ching Prince Authenticated and . [facility]
== END 2024-09-30 23:59 | disposition home or self-care (01) ==
LOC: RAD 09:34
PROVIDERS: PCP Family Medicine; Visit Provider Family Medicine
DX: Z87.891 Personal history of nicotine dependence (principal); Z12.2 Encounter for screening for malignant neoplasm of respiratory organs
CPT/HCPCS: 71271

== ENCOUNTER 2024-12-11 13:10 | Outpatient (CLI) | payer MEDICARE, OTHER, SELFPAY ==
--- OUTSIDE RECORDS SUMMARY | 2024-12-11 13:13 | XMS_ITS | Continuity of Care Document ---
Author Name [facility] Organization [facility] Care Team Providers Care Trauma Therapist Name Role Phone [facility] Unavailable Unavailable Medications Combined list of outpatient medications from Department of Defense and Veterans Affairs facilities.Medications provided include 1) outpatient medications from the last 15 months, and 2) patient-reported medications. Medication Details Route Status Patient Instructions Prescription Expires Prescription Number Last Dispense Date Ordering Provider Order Date Order Qty Source allopurinol 300 mg tablet 300 mg, Oral, Daily, # 90 EA, 1 total refill(s ), Hard Stop Oral (given by mouth) Ordered 05/22/2025 5 2024 90.0 Ambulat ory Pharmac y allopurinol 300 mg tablet 300 mg, Oral, Daily, # 90 EA, 3 total refill(s ), Hard Stop Oral (given by mouth) Complet ed 06/06/2024 4 2023 90.0 Ambulat ory Pharmac y aspirin EC 81 mg tablet 81 mg, Oral, Daily, # 90 EA, 1 total refill(s ), Hard Stop Oral (given by mouth) Ordered 05/22/2025 5 2024 90.0 Ambulat ory Pharmac y aspirin EC 81 mg tablet 81 mg, Oral, Daily, # 90 EA, 3 total refill(s ), Hard Stop Oral (given by mouth) Complet ed 06/06/2024 4 2023 90.0 Ambulat ory Pharmac y celecoxib 200 mg capsule 200 mg, Oral, Daily, # 90 EA, 1 total refill(s ), Hard Stop Oral (given by mouth) Ordered 05/22/2025 5 2024 90.0 Ambulat ory Pharmac y celecoxib 200 mg capsule 200 mg, Oral, Daily, # 90 EA, 3 total refill(s ), Hard Stop Oral (given by mouth) Complet ed 06/06/2024 4 2023 90.0 Ambulat ory Pharmac y CYCLOSPORIN E (cyclospori ne), 0.05 %, DROPERETTE, OPHTHALMIC, [employer] 30 ea. VIAL Active [id number] 4 2023 60 Pharmac y Data Transac tion Service Facilit y CYCLOSPORIN E (cyclospori ne), 0.05 %, DROPERETTE, OPHTHALMIC, [employer] 30 ea. VIAL Active [id number] 4 2023 60 Pharmac y Data Transac tion Service Facilit y fish oil 1000 mg capsule 3000 mg, Oral, Daily, # 300 EA, 1 total refill(s ), Hard Stop Oral (given by mouth) Ordered 05/22/2025 5 2024 300.0 Ambulat ory Pharmac y fluticasone 50 mcg/inh nasal spray [16g] 50 mcg, Nostril- Both, Daily, # 16 g, 2 total refill(s ), Hard Stop Nostri l-Both (into the nose) Complet ed 06/06/20242023 16.0 Ambulat ory Pharmac y furosemide 40 mg tablet 40 mg, Oral, Daily, # 90 EA, 1 total refill(s ), Hard Stop Oral (given by mouth) Ordered 05/22/2025 5 2024 90.0 Ambulat ory Pharmac y furosemide 40 mg tablet 40 mg, Oral, Daily, # 90 EA, 3 total refill(s ), Hard Stop Oral (given by mouth) Complet ed 06/06/2024 4 2023 90.0 Ambulat ory Pharmac y levothyroxi ne (Synthroid) 88 mcg tablet See dose instruct ions in comments , # 30 EA, 4 total refill(s ), Acute Complet ed 06/07/2023 3 2022 30.0 Ambulat ory Pharmac y levothyroxi ne (Synthroid) 88 mcg tablet 88 mcg, Oral, Daily, # 90 EA, 3 total refill(s ), Hard Stop Oral (given by mouth) Complet ed 06/06/2024 3 2023 90.0 Ambulat ory Pharmac y LEVOTHYROXI NE SODIUM (levothyrox ine sodium), 88 MCG, TABLET, ORAL, AMNEAL PHARMACE, 100 ea. BOTTLE Active [id number] 4 2023 90 Pharmac y Data Transac tion Service Facilit y losartan 25 mg tablet 25 mg, Oral, Daily, # 90 EA, 1 total refill(s ), Hard Stop Oral (given by mouth) Ordered 05/22/2025 5 2024 90.0 Ambulat ory Pharmac y losartan 25 mg tablet 25 mg, Oral, Daily, # 90 EA, 3 total refill(s ), Hard Stop Oral (given by mouth) Complet ed 06/06/2024 4 2023 90.0 Ambulat ory Pharmac y losartan 25 mg tablet See Instruct ions, # 90 EA, 1 total refill(s ), Acute Complet ed 06/07/2023 3 2022 90.0 Ambulat ory Pharmac y metoprolol succinate ER 25 mg/24 hour tablet 12.5 mg, Oral, Daily, # 45 EA, 1 total refill(s ), Hard Stop Oral (given by mouth) Ordered 05/22/2025 5 2024 45.0 Ambulat ory Pharmac y metoprolol succinate ER 25 mg/24 hour tablet See Instruct ions, # 45 EA, 3 total refill(s ), Hard Stop Complet ed 06/06/2024 4 2023 45.0 Ambulat ory Pharmac y potassium chloride ER [EQV Klor-Con M20] 20 mEq tablet 20 mEq, Oral, Daily, # 90 EA, 1 total refill(s ), Hard Stop Oral (given by mouth) Ordered 05/22/2025 5 2024 90.0 Ambulat ory Pharmac y potassium chloride ER [EQV Klor-Con M20] 20 mEq tablet 20 mEq, Oral, Daily, # 90 EA, 3 total refill(s ), Hard Stop Oral (given by mouth) Complet ed 06/06/2024 4 2023 90.0 Ambulat ory Pharmac y simvastatin 40 mg tablet See Instruct ions, Oral, # 90 EA, 1 total refill(s ), Hard Stop Oral (given by mouth) Ordered 05/22/2025 5 2024 90.0 Ambulat ory Pharmac y simvastatin 40 mg tablet 40 mg, Oral, Daily, # 90 EA, 3 total refill(s ), Hard Stop Oral (given by mouth) Complet ed 06/06/2024 4 2023 90.0 Ambulat ory Pharmac y Allergies, Adverse Reactions, Alerts Combined list of allergies from Department of Defense and Veterans Affairs facilities. It does not include entries that were removed or entered in error. Substance Category Reaction Severity Reaction type Status Date Reported Comments Source atorvastatin Propensity to adverse reactions to drug Other Reaction Active numbness per patient Unknown Organizat ion LIPITOR Drug allergy (disorder) Other Reaction active 8 [facility] Immunizations Combined list of available immunizations from the Department of Defense and Veterans Affairs facilities. Immunization Series Date Given Administered By Site Reaction Lot Number CVX Code Drug Law Researcher Status Comments Source zoster recombinant 2018 NOLBERTO LIANG () Not Given zoster recombina nt [facility] Procedures Combined list of: 1) Procedures from Department of Veterans Affairs facilities going back up to thelast 18 months, not all [place] non-surgical procedures are included; 2) All procedures from the Department of Defense facilities. Procedure Procedure Type Code Date Perfomer Comments Sourc e No data available for this section Ambulatory P harmacy Social History Combined list of available smoking, tobacco, and other social history from Department of Defense and Veterans Affairs facilities. Social History Type Response Date Comment Sourc e This section is an empty social history section. DoD Assessment and Plan Combined list of future care activities from Department of Defense and Veterans Affairs facilities (e.g., assessment and plan notes, appointments, orders, and referrals). Additional future care activities may be listed in the Plan of Care section. Result Assessment and Plan Date Source Assessment and Plan No data available for this section 12/11/2024 Ambulatory Pharmacy Functional Status Combined list of recent functional and cognitive assessments recorded at [facility] [place] Functional [place] Measurement (FIM) Scale: 1 = Total Assistance (Subject = 0% +), 2 = Maximal Assistance (Subject = 25% +), 3 = Moderate Assistance (Subject = 50% +), 4 = Minimal Assistance (Subject = 75% +), 5 = Supervision, 6 = Modified [place] (Device), 7 = Complete [place] (Timely, Safely). Assessment Date/Time Source Assessment Type Assessment Skill Assessment Score Assessment Details No data available for this section
--- NOTE | 2024-12-11 13:14 | XR_ITS ---
FINAL REPORT CLINICAL HISTORY: lt knee pain FINDINGS: LEFT KNEE 3 views of the left knee were obtained. There is no acute fracture or dislocation. There is degenerative joint disease with chondrocalcinosis. Soft tissues are unremarkable. IMPRESSION: Degenerative changes without acute bony abnormality. Reviewed, Interpreted and Dictated by Nicole Mendenhall MD Transcribed by STEFANI Velasquez Authenticated and [facility]
== END 2024-12-11 23:59 | disposition home or self-care (01) ==
LOC: RAD 13:12
PROVIDERS: PCP Family Medicine; Visit Provider Physician Assistant Surgical
DX: M25.562 Pain in left knee (principal)
CPT/HCPCS: 73562